=== PATIENT | male | born 1960 | race American Indian/Alaskan Native ===

== ENCOUNTER 2021-07-03 11:53 | Emergency (ER) | payer MEDICAID ==
[2021-07-03 13:52] VITALS: BP 176/115
--- NOTE | 2021-07-03 14:28 | XRay Report ---
RIGHT WRIST 4 VIEW(S) INDICATION / CLINICAL INFORMATION: fall/wrist pain, left wrist red,warm, edema COMPARISON: None available. FINDINGS: BONES / JOINT(S): No acute fracture or subluxation. No significant arthritis. SOFT TISSUES: No significant abnormality. ADDITIONAL FINDINGS: Old healed fracture deformity right distal ulna. LEFT WRIST 4 VIEW(S) INDICATION / CLINICAL INFORMATION: fall/wrist pain, left wrist red,warm, edema COMPARISON: None available. FINDINGS: BONES / JOINT(S): No acute fracture or subluxation. No significant arthritis. SOFT TISSUES: No significant abnormality. 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 Signer Name: Rikki Joaquin MD Signed: 07/03/2021 2:24 PM Workstation Name: [id number]
[2021-07-03 14:39] LABS: Hematocrit 38.9 % (35.5-45.6); Hemoglobin 12.7 gm/dl (11.8-15.2); Mean Corpuscular HGB Conc 33 % (32-34); Mean Corpuscular Volume 92 fl (84-94); Platelet Count 113 K/mm3 (140-440); Red Blood Count 4.25 M/mm3 (3.65-5.03); Red Cell Distribution Width 13.7 % (13.2-15.2)
[2021-07-03 14:53] LABS: Alanine Aminotransferase 33 units/L (7-56); Albumin 4.3 g/dL (3.9-5); Blood Urea Nitrogen 7 mg/dL (9-20); Calcium 8.9 mg/dL (8.4-10.2); Hemolysis Index 36; Uric Acid 6.1 mg/dL (3.5-7.6)
--- NOTE | 2021-07-03 14:57 | Emergency Department Report ---
<YASMANI GENAO - Last Filed: 07/03/21 15:53> ED Upper Extremity Inj HPI - General Chief Complaint: Extremity Injury, Upper Stated Complaint: WRIST PAIN Time Seen by Provider: 07/03/21 13:38 - Related Data Previous Rx's Medication Instructions Recorded Last Taken Type HYDROcodone/APAP 7.5-325 [[place] 1 each PO Q8HR PRN #12 tablet 07/03/21 Unknown Rx 7.5/325] Indomethacin [Indocin] 25 mg PO Q8H #21 capsule 07/03/21 Unknown Rx Sulfamethoxazole/Trimethoprim 1 each PO BID 7 Days #14 tablet 07/03/21 Unknown Rx [Bactrim DS TAB] cephALEXin [Keflex] 500 mg PO QID 7 Days #28 cap 07/03/21 Unknown Rx Allergies Allergy/AdvReac Type Severity Reaction Status Date / Time No Known Allergies Allergy Verified 07/03/21 14:10 ED Past Medical Hx - Medications Home Medications: Home Medications Medication Instructions Recorded Confirmed Last Taken Type HYDROcodone/APAP 7.5-325 [[place] 1 each PO Q8HR PRN #12 tablet 07/03/21 Unknown Rx 7.5/325] Indomethacin [Indocin] 25 mg PO Q8H #21 capsule 07/03/21 Unknown Rx Sulfamethoxazole/Trimethoprim 1 each PO BID 7 Days #14 tablet 07/03/21 Unknown Rx [Bactrim DS TAB] cephALEXin [Keflex] 500 mg PO QID 7 Days #28 cap 07/03/21 Unknown Rx ED Medical Decision Making - Lab Data Result diagrams: 07/03/21 14:21 07/03/21 14:21 - Medical Decision Making I evaluated patient's wrist. Patient does have some mild redness along the wrist with tenderness to palpation and pain with movement. Mild warmth palpated. No swelling of the wrist noted. After midlevel provider's discussion with Dr. Blanco he recommends splinting, NSAIDs, and follow-up. Patient will be treated here with an initial IV dose of antibiotics and discharged on antibiotics. Will reassess patient for signs of alcohol withdrawal given the f indings of tachycardia hypotension here in the ED and treat accordingly ED Disposition Clinical Impression: Wrist pain Qualifiers: Laterality: bilateral Qualified Code(s): M25.531 - Pain in right wrist; M25.532 - Pain in left wrist Wrist swelling Qualifiers: Laterality: left Qualified Code(s): M25.432 - Effusion, left wrist Disposition: HOME / SELF CARE / HOMELESS Condition: Stable Instructions: Low-Purine Eating Plan, Cellulitis, Adult Additional Instructions: Please take medication as prescribed. Please elevate your arm. May ice 15 minutes at a time. Follow-up with orthopedic doctor. It is very important that you follow-up. Return to emergency room immediately for any new or worsening symptoms. Prescriptions: Sulfamethoxazole/Trimethoprim [Bactrim DS TAB] 1 each PO BID 7 Days #14 tablet Indomethacin [Indocin] 25 mg PO Q8H #21 capsule cephALEXin [Keflex] 500 mg PO QID 7 Days #28 cap HYDROcodone/APAP 7.5-325 [[place] 7.5/325] 1 each PO Q8HR PRN #12 tablet PRN Reason: Pain , Severe (7-10) Referrals: [facility] [Other] - 3-5 Days TIMOTHY BLANCO MD [Staff Physician] - 2-3 Days Print Language: NAURUAN <REMINGTON BUSTILLOS - Last Filed: 07/03/21 16:54> ED Upper Extremity Inj HPI - General Source: patient Mode of arrival: Ambulatory Limitations: No Limitations - History of Present Illness Initial Comments: Patient is a 61-year-old male presents emergency room with complaints of bilateral wrist pain that began 3 days ago. Patient states that he was falling and caught himself against the wall and reports that both of his wrist bent backwards he states since then he has had wrist pain. Patient states he previously had an injury to his right wrist. He denies any numbness or weakness. He states his pain is increased with movement. He has a past medical history of chronic hypertension. No allergies to medications. He is a daily alcohol d constance, he states he drinks six beers a day ED Review of Systems ROS: Stated complaint: WRIST PAIN Other details as noted in HPI Comment: All other systems reviewed and negative ED Past Medical Hx - Past Medical History Previous Medical History?: Yes Hx Hypertension: Yes - Surgical History Past Surgical History?: No ED Physical Exam - General Limitations: No Limitations General appearance: alert, in no apparent distress - Head Head exam: Present: atraumatic, normocephalic - Eye Eye exam: Present: normal appearance - ENT ENT exam: Present: mucous membranes moist - Respiratory Respiratory exam: Present: normal lung sounds bilaterally. Absent: respiratory distress, wheezes, rales, rhonchi, stridor, chest wall tenderness, accessory muscle use, decreased breath sounds, prolonged expiratory - Cardiovascular Cardiovascular Exam: Present: regular rate, normal rhythm, normal heart sounds. Absent: systolic murmur, diastolic murmur, rubs, gallop - Extremities Exam Extremities exam: Present: other (no TTP of the RUE, FROM of the RUE, ttp to the left wrist, edema, erythema, and increased warmth to the left wrist, decreased ROM secondary to pain, neurovascularly intact) - Neurological Exam Neurological exam: Present: alert, oriented X3 - Psychiatric Psychiatric exam: Present: normal affect, normal mood - Skin Skin exam: Present: warm, dry, intact ED Course Vital Signs 07/03/21 07/03/21 13:49 13:51 Temperature 98 F 99.3 F Pulse Rate 111 H 114 H Respiratory 18 16 Rate Blood Pressure 176/115 Blood Pressure 176/119 [Right] O2 Sat by Pulse 99 99 Oximetry - Consultations Consultation #1: 07/03/21 15:[address] Blanco [facility] regarding patient presentation results, he advised does not appear likely consistent with septic joint, he advised to give patient prescription for NSAIDs, pain medication, place in wrist splint and have him follow-up in office 07/03/21 15:[address] Genao, ER attending who is agreeable with plan and advised to give patient 1 dose of antibiotics here and to prescribe patient Bactrim and Kef anastasiya ED Medical Decision Making - Lab Data Result diagrams: 07/03/21 14:21 07/03/21 14:21 Critical care attestation.: If time is entered above; I have spent that time in minutes in the direct care of this critically ill patient, excluding procedure time. ED Disposition Is pt being admited?: No Does the pt Need Aspirin: No Time of Disposition: 16:52
[2021-07-03] MEDS ORDERED: oxyCODONE /ACETAMINOPHEN 5-325MG TAB PO SCH (15:00)
[2021-07-03 15:02] LABS: BUN/Creatinine Ratio 10
[2021-07-03 15:09] LABS: Basophils % (Auto) 0.3 % (0.0-1.8); Lymphocytes # (Auto) 0.9 K/mm3 (1.2-5.4); Lymphocytes % (Auto) 6.8 % (13.4-35.0); Monocytes # (Auto) 1.5 K/mm3 (0.0-0.8); Monocytes % (Auto) 10.8 % (0.0-7.3)
[2021-07-03] MEDS ORDERED: CEFEPIME/NS 2 GM/100 ML 2 GM/100 ML BAG IV ONE (15:16)
[2021-07-03] MEDS ORDERED: VANCOMYCIN 1,250 MG in SODIUM CHLORIDE 0.9% 250ML 250 ML IV ONE (15:30)
[2021-07-03] MEDS ORDERED: SODIUM CHLORIDE 0.9% 1000 ML 1,000 ML IV ONE (15:43)
[2021-07-03] MEDS ORDERED: cefTRIAXone/NS 1 GM/50 ML 1 GM/50 ML BAG IV ONE (15:44)
[2021-07-03] MEDS ORDERED: VANCOMYCIN PHARMACY TO DOSE IV SCH (16:00)
[2021-07-04] MEDS ORDERED: VANCOMYCIN 750 MG in SODIUM CHLORIDE 0.9% 250ML 250 ML IV SCH (03:30)
== END 2021-07-03 18:34 | disposition home or self-care (01) ==
LOC: ED 11:53
DX: M25.432 Effusion, left wrist (principal); M25.531 Pain in right wrist; I10 Essential (primary) hypertension; M25.532 Pain in left wrist
CPT/HCPCS: 36415; 73110; 80053; 82140; 84550; 85007; 85025; 86140; 87040; 96365; 96366; 96368; 99284; J0696; J3370; J7050

== ENCOUNTER 2022-04-18 08:20 | Emergency (ER) | payer MEDICAID ==
--- NOTE | 2022-04-18 12:01 | XRay Report ---
RIGHT ANKLE 3 VIEWS INDICATION: trauma. COMPARISON: None. IMPRESSION: No acute osseous or soft tissue abnormality. Mild osteoarthritic changes are identifi ed at the ankle joint. RIGHT FOOT 3 VIEWS INDICATION: trauma. COMPARISON: None. IMPRESSION: No acute osseous or soft tissue abnormality. No significant DJD. BILATERAL WRIST 2 VIEWS INDICATION: trauma. COMPARISON: None. IMPRESSION: A nondisplaced mildly comminuted and impacted fracture of the distal left radius is iden tified with intra-articular extension at the left radiocarpal joint. No additional bony structures ar e intact. 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 No acute fracture is identified in the right wrist. Chronic deformity of the distal right ulna is suspected. No significa nt arthritic changes. RIGHT RIBS 4 VIEWS INDICATION: trauma. COMPARISON: None. IMPRESSION: Subtle nondisplaced fractures are suspected in right lateral ribs 6-8. The remaining ri ght ribs appear intact. The right lung is well-aerated. Signer Name: Robin Jama Jr, MD Signed: 04/18/2022 11:56 AM Workstation Name: [id number]
--- NOTE | 2022-04-18 12:22 | Emergency Department Report ---
ED General Adult HPI - General Chief complaint: Extremity Problem,Nontraumatic Stated complaint: FALL Time Seen by Provider: 04/18/22 10:43 Source: patient Mode of arrival: Ambulatory Limitations: No Limitations - History of Present Illness Initial comments: Patient is a 61-year-old male who presents stating that 2 days ago he was walking down a ramp that was wet and landed on a concrete edge hitting his ribs on the concrete and twisting his ankle as well as injuring both wrists. He is right-handed with previous injuries to both wrists and his ribs a month ago. He states he was all healed from that injury prior to the injury 2 days ago. Pain with inspiration but denies shortness of breath. Patient does tell me that he injured himself 2 months ago and was seen here but I am not able to find any record of that. Denies head injury or loss of consciousness. Severity scale (0 -10): 9 Associated Symptoms: denies: confusion, chest pain, cough, diaphoresis, fever/chills, headaches, loss of appetite, malaise, nausea/vomiting, rash, seizure, shortness of breath, syncope, weakness Treatments Prior to Arrival: none - Related Data Previous Rx's Medication Instructions Recorded Last Taken Type HYDROcodone/APAP 7.5-325 [[place] 1 each PO Q8HR PRN #12 tablet 04/18/22 Unknown Rx 7.5-325 mg TAB] Allergies Allergy/AdvReac Type Severity Reaction Status Date / Time No Known Allergies Allergy Verified 04/18/22 08:28 ED Review of Systems ROS: Stated complaint: FALL Other details as noted in HPI Comment: All other systems reviewed and negative Constitutional: denies: chills, fever Eyes: denies: eye discharge, vision change ENT: denies: epistaxis Respiratory: denies: cough, shortness of breath Cardiovascular: denies: chest pain, palpitations, edema Gastrointestinal: denies: nausea, vomiting, diarrhea Genitourinary: denies: urgency, dysuria, frequency, hematuria Musculoskeletal: as per HPI. denies: back pain Skin: other (No open wounds). denies: rash Neurological: denies: headache, weakness, numbness, paresthesias Psychiatric: denies: anxiety, depression Hematological/Lymphatic: denies: easy bleeding, easy bruising ED Past Medical Hx - Past Medical History Hx Hypertension: Yes - Social History Smoking Status: Never Smoker Substance Use Type: Alcohol - Medications Home Medications: Home Medications Medication Instructions Recorded Confirmed Last Taken Type HYDROcodone/APAP 7.5-325 [[place] 1 each PO Q8HR PRN #12 tablet 04/18/22 Unknown Rx 7.5-325 mg TAB] ED Physical Exam - General Limitations: No Limitations General appearance: alert, in no apparent distress - Head Head exam: Present: atraumatic, normocephalic - Eye Eye exam: Present: PERRL, EOMI. Absent: scleral icterus, conjunctival injection - ENT ENT exam: Present: mucous membranes moist - Neck Neck exam: Present: normal inspection, full ROM - Respiratory Respiratory exam: Present: normal lung sounds bilaterally, respiratory distress, chest wall tenderness (Right lateral ribs. No crepitus.) - Cardiovascular Cardiovascular Exam: Present: regular rate, normal rhythm, normal heart sounds - GI/Abdominal GI/Abdominal exam: Present: soft. Absent: distended, tenderness - Expanded Upper Extremity Exam Left General: Present: normal inspection. Absent: abrasion Upper Arm exam: Present: normal inspection, full ROM. Absent: tenderness Elbow exam: Present: normal inspection, full ROM. Absent: tenderness Forearm Wrist exam: Present: tenderness (Mid wrist sparing snuffbox bilaterally). Absent: swelling, abrasion, laceration, deformity, crepidus, e rythema, tenderness over anatomical snuff box Neuro motor exam: Present: wrist extension intact, thumb opposition intact Neurosensory exam: Present: 2-point discrimination, radial nerve intact Vascular: Present: radial pulse. Absent: vascular compromise - Expanded Lower Extremity Exam Right Lower Leg exam: Present: normal inspection, full ROM. Absent: tenderness Ankle exam: Present: full ROM, tenderness (Tender right lateral malleolus), s welling (Mild lateral malleolus). Absent: abrasion, laceration, ecchymosis Foot/Toe exam: Present: full ROM, tenderness, swelling (Fifth metatarsal) Neuro vascular tendon exam: Present: no vascular compromise, motor deficit, sensory deficit. Absent: pulse deficit Gait: Positive: antalgic - Back Exam Back exam: Present: normal inspection, full ROM - Neurological Exam Neurological exam: Present: alert, oriented X3 - Psychiatric Psychiatric exam: Present: normal affect, normal mood - Skin Skin exam: Present: warm, dry, intact ED Course Vital Signs 04/18/22 04/18/22 08:21 13:29 Temperature 97.8 F 98 F Pulse Rate 115 H 90 Respiratory 16 16 Rate Blood Pressure 140/98 142/85 [Right] O2 Sat by Pulse 100 99 Oximetry - Reevaluation(s) Reevaluation #1: 04/18/22 12:41 Old records reviewed and last visit here was in 2020. Question whether these fractures are acute or subacute but will treat as acute given no ability to review old records. ED Medical Decision Making - Radiology Data Radiology results: report reviewed, image reviewed [facility] [address] [place] [address] XRay Report Signed Patient: KAMILA EATON MR#: [id number] 220 : 1960 Acct:[id number] Age/Sex: 61 / M ADM Date: 04/18/22 Loc: ED Attending Dr: Ordering Physician: JOSE DUCKOWRTH Date of Service: 04/18/22 Procedure(s): XR foot 3+V RT Accession Number(s): [id number] cc: JOSE DUCKWORTH Fluoro Time In Minutes: RIGHT ANKLE 3 VIEWS INDICATION: trauma. COMPARISON: None. IMPRESSION: No acute osseous or soft tissue abnormality. Mild osteoarthritic changes are identified at the ankle joint. RIGHT FOOT 3 VIEWS INDICATION: trauma. COMPARISON: None. IMPRESSION: No acute osseous or soft tissue abnormality. No significant DJD. BILATERAL WRIST 2 VIEWS INDICATION: trauma. COMPARISON: None. IMPRESSION: A nondisplaced mildly comminuted and impacted fracture of the distal left radius is identified with intra-articular extension at the left radiocarpal joint. No additional bony structures are intact. 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 No acute fracture is identified in the right wrist. Chronic deformity of the distal right ulna is suspected. No significant arthritic changes. RIGHT RIBS 4 VIEWS INDICATION: trauma. COMPARISON: None. IMPRESSION: Subtle nondisplaced fractures are suspected in right lateral ribs 6-8. The remaining right ribs appear intact. The right lung is well-aerated. Signer Name: Robin Jama Jr, MD Signed: 04/18/2022 11:56 AM Workstation Name: [id number] Transcribed By: TTR Dictated By: ROBIN JAMA JR, MD Electronically Authenticated By: ROBIN JAMA JR, MD Signed Date/Time: 04/18/22 1156 DD/ 1152 TD/TT: Print Cancel - Medical Decision Making Wrist splint. Discussed deep breathing cough to prevent pneumonia. Pain medication and orthopedic follow-up as well as follow-up with primary care. - Differential Diagnosis Wrist fracture (left). Wrist sprain right. RigAnkae sprain. Rib fracture Critical care attestation.: If time is entered above; I have spent that time in minutes in the direct care of this critically ill patient, excluding procedure time. ED Disposition Clinical Impression: Rib fractures, Left wrist fracture, Right ankle sprain, Left ankle sprain Disposition: 01 HOME / SELF CARE / HOMELESS Is pt being admited?: No Condition: Stable Instructions: Ankle Sprain, Phase I Rehab-SportsMed, Wrist Fracture Treated With Immobilization, [id number], Wrist Splint, Adult, Rib Fracture, [id number] Additional Instructions: Wrist splint. Discussed deep breathing cough to prevent pneumonia. Pain medication and orthopedic follow-up as well as follow-up with primary care. Prescriptions: HYDROcodone/APAP 7.5-325 [[place] 7.5-325 mg TAB] 1 each PO Q8HR PRN #12 tablet PRN Reason: Pain , Severe (7-10) Referrals: MISHEL DODSON MD [Primary Care Provider] - 3-5 Days Forms: Work/School Release Form(ED) Time of Disposition: 12:46
[2022-04-18 13:30] VITALS: BP 142/85
== END 2022-04-18 13:31 | disposition home or self-care (01) ==
LOC: ED 08:20
DX: S62.92XA Unspecified fracture of left hand, initial encounter for closed fracture (principal); S22.31XA Fracture of one rib, right side, initial encounter for closed fracture; S93.401A Sprain of unspecified ligament of right ankle, initial encounter; S93.402A Sprain of unspecified ligament of left ankle, initial encounter; F10.20 Alcohol dependence, uncomplicated; I10 Essential (primary) hypertension; X58.XXXA Exposure to other specified factors, initial encounter; Y93.89 Activity, other specified; Y92.89 Other specified places as the place of occurrence of the external cause; Y99.8 Other external cause status
CPT/HCPCS: 99283

== ENCOUNTER 2022-05-03 20:08 | Emergency (ER) | payer MEDICAID ==
[2022-05-03] MEDS ORDERED: traMADol 50 MG TAB PO ONE (20:44)
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
[2022-05-03 22:02] VITALS: BP 143/92
== END 2022-05-03 22:40 | disposition home or self-care (01) ==
LOC: ED 20:08
DX: S16.1XXA Strain of muscle, fascia and tendon at neck level, initial encounter (principal); R07.89 Other chest pain; I10 Essential (primary) hypertension; V89.2XXA Person injured in unspecified motor-vehicle accident, traffic, initial encounter; Y93.89 Activity, other specified; Y92.89 Other specified places as the place of occurrence of the external cause; Y99.8 Other external cause status
CPT/HCPCS: 72040; 99283